=== PATIENT | male | born 1955 | race Caucasian/White ===

== ENCOUNTER 2016-09-13 16:59 | Emergency (ER) | payer BC ==
[2016-09-13] MEDS ORDERED: NS 0.9% 1000 ML* 1,000 ML IV ONE (17:27)
[2016-09-13] MEDS ORDERED: Iohexol 300* (CONTRAST) 10 ML SDV IV ONE (17:48)
[2016-09-13 17:51] LABS: Hematocrit 45 % (42-52); Hemoglobin 15.3 g/dl (14.0-18.0); Mean Corpuscular HGB Conc 34 g/dl (31-36); Mean Corpuscular Hemoglobin 30 pg (27-31); Mean Corpuscular Volume 89 fL (80-94); Mean Platelet Volume 8 um3 (7.4-10.4); Red Blood Count 5.08 10^6/ul (4.0-5.4); Red Cell Distribution Width 14 % (10.5-15); White Blood Count 11.9 10^3/ul (3.5-10.8)
[2016-09-13 17:59] LABS: Urine Bacteria Absent (Absent); Urine Bilirubin Negative (Negative); Urine Glucose Negative (Negative); Urine Nitrite Negative (Negative)
[2016-09-13 18:07] LABS: ALT 38 U/L (7-52); AST 27 U/L (13-39); Albumin 3.7 g/dL (3.2-5.2); Alkaline Phosphatase 50 U/L (34-104); Anion Gap 6 mmol/L (2-11); Blood Urea Nitrogen 12 mg/dL (6-24); C Reactive Protein 45.09 mg/L (< 5.00); CO2 Carbon Dioxide 24 mmol/L (22-32); Calcium 8.5 mg/dL (8.6-10.3); Chloride 105 mmol/L (101-111); Creatine Kinase 349 U/L (10-223); EGFR African American 117.1 (>60); Globulin 2.7 g/dL (2-4); Glucose 102 mg/dL (70-100); Lipase < 10 U/L (11.0-82.0); Magnesium 1.9 mg/dL (1.9-2.7); Potassium 3.3 mmol/L (3.5-5.0); Sodium 135 mmol/L (133-145); Total Protein 6.4 g/dL (6.4-8.9)
[2016-09-13 18:09] LABS: Troponin I 0.01 ng/mL (<0.04)
[2016-09-13 18:31] VITALS: BP 119/68
--- NOTE | 2016-09-13 19:25 | RAD ---
CLINICAL HISTORY: Abdominal pain and "loose stools" x2 days. Relevant surgical history includes cholecystectomy COMPARISON: None TECHNIQUE: Contrast enhanced CT examination of the abdomen and pelvis from the lung bases through the initial tuberosities. The patient received 150 mL Omnipaque 300 intravenously prior to imaging.The patient received oral contrast as well prior to imaging. FINDINGS: VISUALIZED LUNG BASES: The visualized lung bases are grossly clear. There is no pleural effusion. ABDOMEN AND PELVIS: In the lower portion of the splenium there is a 7 mm hyperattenuating focus. The spleen is otherwise normal in appearance. The liver is homogenously hypodense relative to the spleen. There are no focal or suspicious liver masses. The pancreas and adrenal glands are grossly normal in appearance. The gallbladder is surgically absent. The kidneys are normal in appearance without focal mass, calcification or signs of hydronephrosis. There are contrast has progressed as far as the hepatic flexure which prevents a more thorough evaluation of the distal colon.. The small and large bowel are not distended. The normal appendix measuring 5 mm in diameter is identified in the right lower quadrant (image 61). There are rectosigmoid diverticula. The sigmoid colon exhibits questionable wall thickening. Liquid stool is noted in the distal most portions of the rectum. There is no gross retroperitoneal or mesenteric lymphadenopathy. The pelvic viscera is normal in appearance. There is coarse calcification of the infrarenal abdominal aorta. Coarse calcification extends into the bilateral iliac arteries. At the level of the right renal artery there is calcification that extends into the lumen of the aorta. Degenerative changes include multilevel loss of intervertebral disc height involving the lower thoracic and lumbar spine.There are no sinister bone lesions. IMPRESSION: 1. CT findings are most consistent with sigmoid diverticulitis. There is no evidence of macro perforation or drainable abscess. 2. Advanced calcified atherosclerosis of the infrarenal abdominal aorta extending into the iliac arteries. Please correlate to signs or symptoms of arterial deficiency. 3. Likely hepatic steatosis. 4. There is a 7 mm focus in the spleen likely representing a benign hemangioma. If prior abdominal imaging that includes the spleen can be made available then a comparison can be made to comment on chronicity. Otherwise further characterization can be made with nonemergent ultrasound of the spleen. 5. Additional chronic, degenerative and iatrogenic findings described in the body the report.
[2016-09-13] MEDS ORDERED: Levofloxacin 500 MG IVPREMIX(* 500 MG/100 ML BAG IVPB ONE (19:29)
[2016-09-13] MEDS ORDERED: metroNIDAZOLE IV 500 MG/100ML* 500 MG/100 ML BAG IVPB ONE (19:29)
--- NOTE | 2016-09-13 20:07 | ED ---
Shaquille Hutson Salem, scribed for Dada Jean MD on 09/13/16 at 1937 . HPI Chest Pain - HPI Summary HPI Summary: Patient is a 61 y/o M who presents to the ED from [facility] with intermittent upper right-sided CP for the past week. Pt had a borderline elevated troponin level prior to transfer from [place]. He reports diarrhea and abdominal pain for the past 2 days. Pain is not aggravated or alleviated with anything. - History of Current Complaint Chief Complaint: EDChestPainROMI Time Seen by Provider: 09/13/16 17:18 Hx Obtained From: Patient Onset/Duration: Started Days Ago, Atraumatic, Still Present Timing: Intermittent, Lasting Days Initial Severity: Moderate Current Severity: Moderate Pain Intensity: 8 Pain Scale Used: 0-10 Numeric Chest Pain Location: Right Anterior Chest Pain Radiates: No Aggravating Factor(s): Nothing Alleviating Factor(s): Nothing Associated Signs and Symptoms: Positive: Chest Pain, Abdominal Pain, Other: - Diarrhea. - Allergy/Home Medications Allergies/Adverse Reactions: Allergies Allergy/AdvReac Type Severity Reaction Status Date / Time No Known Allergies Allergy Verified 09/13/16 17:21 Home Medications: Home Medications Ibuprofen [Ibuprofen 200 MG] 800 mg PO 09/13/16 [History] Levothyroxine Sodium [Levo-T] 75 mcg PO 09/13/16 [History] Meloxicam [Mobic] 15 mg PO 09/13/16 [History] Simvastatin (NF) [Zocor (NF)] 80 mg PO DAILY 09/13/16 [History Confirmed ] amLODIPine/Benazepril 12/22(NF [Lotrel 12/22(NF)] 1 cap PO DAILY 09/13/16 [ History Confirmed 09/13/16] PMH/Surg Hx/FS Hx/Imm Hx - Surgical History Surgery Procedure, Year, and Place: CHOLECYSTECTOMY, BILAT KNEE SX Infectious Disease History: No Infectious Disease History: Denies: Traveled Outside the [place] in Last 30 Days - Family History Known Family History: Positive: Cardiac Disease - Social History Alcohol Use: None Hx Substance Use: No Substance Use Type: Reports: None Hx Tobacco Use: Yes Smoking Status (MU): Former Smoker Review of Systems Positive: Chest Pain Positive: Abdominal Pain, Diarrhea All Other Systems Reviewed And Are Negative: Yes Physical Exam Triage Information Reviewed: Yes Vital Signs On Initial Exam: Initial Vitals Temp Pulse Resp BP Pulse Ox 99.2 F 69 12 140/79 95 09/13/16 17:10 09/13/16 17:10 09/13/16 17:10 09/13/16 17:10 09/13/16 17:10 Vital Signs Reviewed: Yes Appearance: Positive: Well-Appearing, No Pain Distress Skin: Positive: Warm Head/Face: Positive: Normal Head/Face Inspection Eyes: Positive: SHAHRAM ENT: Positive: Hearing grossly normal Neck: Positive: Supple Respiratory/Lung Sounds: Positive: Clear to Auscultation, Breath Sounds Present Cardiovascular: Positive: RRR. Negative: Murmur Abdomen Description: Positive: Nontender, No Organomegaly, Soft. Negative: Distended, Guarding Bowel Sounds: Positive: Present Musculoskeletal: Positive: Strength/ROM Intact Neurological: Positive: Alert, Oriented to Person Place, Time Psychiatric: Positive: Affect/Mood Appropriate - [place] Coma Scale Coma Scale Total: 15 Diagnostics - Vital Signs Vital Signs Temp Pulse Resp BP Pulse Ox 09/13/16 19:00 80 20 93 09/13/16 18:00 70 12 119/68 94 09/13/16 17:30 66 15 118/67 93 09/13/16 17:25 73 16 95 09/13/16 17:24 131/79 09/13/16 17:12 99.2 F 70 14 140/79 96 09/13/16 17:10 99.2 F 69 12 140/79 95 - Laboratory Lab Results: Lab Results 09/13/16 09/13/16 09/13/16 Range/Units 17:38 17:38 17:38 WBC 11.9 H (3.5-10.8) 10^3/ul RBC 5.08 (4.0-5.4) 10^6/ul Hgb 15.3 (14.0-18.0) g/dl Hct 45 (42-52) % MCV 89 (80-94) fL MCH 30 (27-31) pg MCHC 34 (31-36) g/dl RDW 14 (10.5-15) % Plt Count 189 (150-450) 10^3/ul MPV 8 (7.4-10.4) um3 Neut % (Auto) 70.4 (38-83) % Lymph % (Auto) 17.3 L (25-47) % Mcdowell % (Auto) 8.9 (1-9) % Eos % (Auto) 2.6 (0-6) % Baso % (Auto) 0.8 (0-2) % Absolute Neuts (auto) 8.4 H (1.5-7.7) 10^3/ul Absolute Lymphs (auto) 2.1 (1.0-4.8) 10^3/ul Absolute Monos (auto) 1.1 H (0-0.8) 10^3/ul Absolute Eos (auto) 0.3 (0-0.6) 10^3/ul Absolute Basos (auto) 0.1 (0-0.2) 10^3/ul Absolute Nucleated RBC 0 10^3/ul Nucleated RBC % 0 INR (Anticoag Therapy) (0.89-1.11) Sodium 135 (133-145) mmol/L Potassium 3.3 L (3.5-5.0) mmol/L Chloride 105 (101-111) mmol/L Carbon Dioxide 24 (22-32) mmol/L Anion Gap 6 (2-11) mmol/L BUN 12 (6-24) mg/dL Creatinine 0.86 (0.67-1.17) mg/dL Est GFR ( Amer) 117.1 (>60) Est GFR (Non-Af Amer) 91.0 (>60) BUN/Creatinine Ratio 14.0 (8-20) Glucose 102 H (70-100) mg/dL Lactic Acid (0.5-2.0) mmol/L Calcium 8.5 L (8.6-10.3) mg/dL Magnesium 1.9 (1.9-2.7) mg/dL Total Bilirubin 1.60 H (0.2-1.0) mg/dL AST 27 (13-39) U/L ALT 38 (7-52) U/L Alkaline Phosphatase 50 (34-104) U/L Total Creatine Kinase 349 H (10-223) U/L CK-MB (CK-2) 8.4 H (0.6-6.3) ng/mL Troponin I 0.01 (<0.04) ng/mL C-Reactive Protein 45.09 H (< 5.00) mg/L Total Protein 6.4 (6.4-8.9) g/dL Albumin 3.7 (3.2-5.2) g/dL Globulin 2.7 (2-4) g/dL Albumin/Globulin Ratio 1.4 (1-3) Lipase < 10 L (11.0-82.0) U/L Urine Color Yellow Urine Appearance Clear Urine pH 5.0 (5-9) Ur Specific [place] 1.018 (1.010-1.030) Urine Protein Negative (Negative) Urine Ketones Negative (Negative) Urine Blood Negative (Negative) Urine Nitrate Negative (Negative) Urine Bilirubin Negative (Negative) Urine Urobilinogen Negative (Negative) Ur Leukocyte Esterase Negative (Negative) Urine WBC (Auto) Absent (Absent) Urine RBC (Auto) Absent (Absent) Ur Squamous Epith Cells Present H (Absent) Urine Bacteria Absent (Absent) Hyaline Casts Present H (Absent) Urine Glucose Negative (Negative) 09/13/16 09/13/16 Range/Units 17:38 17:38 WBC (3.5-10.8) 10^3/ul RBC (4.0-5.4) 10^6/ul Hgb (14.0-18.0) g/dl Hct (42-52) % MCV (80-94) fL MCH (27-31) pg MCHC (31-36) g/dl RDW (10.5-15) % Plt Count (150-450) 10^3/ul MPV (7.4-10.4) um3 Neut % (Auto) (38-83) % Lymph % (Auto) (25-47) % Mcdowell % (Auto) (1-9) % Eos % (Auto) (0-6) % Baso % (Auto) (0-2) % Absolute Neuts (auto) (1.5-7.7) 10^3/ul Absolute Lymphs (auto) (1.0-4.8) 10^3/ul Absolute Monos (auto) (0-0.8) 10^3/ul Absolute Eos (auto) (0-0.6) 10^3/ul Absolute Basos (auto) (0-0.2) 10^3/ul Absolute Nucleated RBC 10^3/ul Nucleated RBC % INR (Anticoag Therapy) 1.04 (0.89-1.11) Sodium (133-145) mmol/L Potassium (3.5-5.0) mmol/L Chloride (101-111) mmol/L Carbon Dioxide (22-32) mmol/L Anion Gap (2-11) mmol/L BUN (6-24) mg/dL Creatinine (0.67-1.17) mg/dL Est GFR ( Amer) (>60) Est GFR (Non-Af Amer) (>60) BUN/Creatinine Ratio (8-20) Glucose (70-100) mg/dL Lactic Acid 0.9 (0.5-2.0) mmol/L Calcium (8.6-10.3) mg/dL Magnesium (1.9-2.7) mg/dL Total Bilirubin (0.2-1.0) mg/dL AST (13-39) U/L ALT (7-52) U/L Alkaline Phosphatase (34-104) U/L Total Creatine Kinase (10-223) U/L CK-MB (CK-2) (0.6-6.3) ng/mL Troponin I (<0.04) ng/mL C-Reactive Protein (< 5.00) mg/L Total Protein (6.4-8.9) g/dL Albumin (3.2-5.2) g/dL Globulin (2-4) g/dL Albumin/Globulin Ratio (1-3) Lipase (11.0-82.0) U/L Urine Color Urine Appearance Urine pH (5-9) Ur Specific [place] (1.010-1.030) Urine Protein (Negative) Urine Ketones (Negative) Urine Blood (Negative) Urine Nitrate (Negative) Urine Bilirubin (Negative) Urine Urobilinogen (Negative) Ur Leukocyte Esterase (Negative) Urine WBC (Auto) (Absent) Urine RBC (Auto) (Absent) Ur Squamous Epith Cells (Absent) Urine Bacteria (Absent) Hyaline Casts (Absent) Urine Glucose (Negative) Result Diagrams: 09/13/16 17:38 09/13/16 17:38 Lab Statement: Any lab studies that have been ordered have been reviewed, and results considered in the medical decision making process. - CT Abd/Pelvis CT Interpretation Completed By: Radiologist - IMPRESSION: 1. CT findings are most consistent with sigmoid diverticulitis. There is no evidence of macro perforation or drainable abscess. 2. Advanced calcified atherosclerosis of the infrarenal abdominal aorta extending into the iliac arteries. Please correlate to signs or symptoms of arterial deficiency. 3. Likely hepatic steatosis. 4. There is a 7 mm focus in the spleen likely representing a benign hemangioma. If prior abdominal imaging that includes the spleen can be made available then a comparison can be made to comment on chronicity. Otherwise further characterization can be made with nonemergent ultrasound of the spleen. 5. Additional chronic, degenerative and iatrogenic findings described in the body the report. - EKG 1751 EKG Interpretation: Sinus rhythm @ 67 bpm with APC's. Re-Evaluation - Re-Evaluation First Eval Re-Evaluation Time: 22:10 Change: Improved Comment: results d/w pt Chest Pain Course/Dx - Course Course Of Treatment: 61 y/o M presents from [facility] with intermittent upper right-sided CP for the past week and borderline elevated troponin level [employer]. He reports diarrhea and abdominal pain for the past 2 days. He received IV fluids, Levaquin, and Flagyl in the ED course. Trop: 0.01. EKS shows Sinus rhythm @ [address] a/p shows, per radiology, IMPRESSION: 1. CT findings are most consistent with sigmoid diverticulitis. There is no evidence of. macro perforation or drainable abscess. 2. Advanced calcified atherosclerosis of the infrarenal abdominal aorta extending into the. iliac arteries. Please correlate to signs or symptoms of arterial deficiency. 3. Likely hepatic steatosis. 4. There is a 7 mm focus in the spleen likely representing a benign hemangioma. If prior abdominal imaging that includes the spleen can be made available then a comparison can be. made to comment on chronicity. Otherwise further characterization can be made with. nonemergent ultrasound of the spleen. 5. Additional chronic, degenerative and iatrogenic findings described in the body the report. Pt will be discharged. - Diagnoses Provider Diagnoses: Diverticulitis Discharge - Discharge Plan Condition: Improved Disposition: HOME Prescriptions: Levofloxacin TAB* [Levaquin TAB*] 500 mg PO DAILY #7 tab Metronidazole [Flagyl 500 MG TAB] 500 mg PO TID #20 tab Patient Education Materials: Diverticulitis (ED) Forms: *Work Release Referrals: [facility] [Outside] Additional Instructions: Please follow up with [facility] referral within one week. The documentation as recorded by the Shaquille dueñas Salem accurately reflects the service I personally performed and the decisions made by me, Dada Jean MD.
== END 2016-09-13 22:36 | disposition home or self-care (01) ==
LOC: ED 16:59
DX: K57.92 Diverticulitis of intestine, part unspecified, without perforation or abscess without bleeding (principal); R07.9 Chest pain, unspecified; R10.9 Unspecified abdominal pain; R19.7 Diarrhea, unspecified; Z87.891 Personal history of nicotine dependence
CPT/HCPCS: 36415; 74177; 80053; 81003; 82550; 82553; 83605; 83690; 83735; 84484; 85025; 85610; 86140; 93005; 99284; J1956; Q9967